=== PATIENT | female | born 2005 | race Caucasian/White ===

== ENCOUNTER 2023-01-15 17:24 | Emergency (ER) | payer BC, SELFPAY ==
--- NOTE | ~2023-01-15 | XR_ITS ---
EXAMINATION: XR chest 2V DATE: 01/15/2023 19:30 INDICATION: Cough TECHNIQUE: PA and lateral views of the chest are obtained. COMPARISON: None available FINDINGS: The lungs are free of acute opacities. No pleural effusion or pneumothorax. The cardiomedia stinal silhouette is normal. The visualized bones and soft tissues are unremarkable. IMPRESSION: 1. No acute cardiopulmonary abnormality. Reviewed, dictated and finalized at location [facility]. [facility]
[2023-01-15 18:25] VITALS: BP 141/86; PULSE 126; RESP 16; TEMP 38.1; O2SAT 99
[2023-01-15 18:47] LABS: Basophils Absolute Auto 0.1 K/mm3 (0.0-0.1); Eosinophils Absolute Auto 0.1 K/mm3 (0-0.3); Hematocrit 42.6 % (37.0-47.0); Hemoglobin 14.4 g/dL (12.0-15.0); Immature Granulocyte Absolute 0.03 K/mm3 (0.00-0.031); Immature Granulocyte Percent A 0.3 % (0-0.5); Lymphocytes Absolute Auto 2.57 K/mm3 (0.9-3.2); Lymphocytes Percent Auto 28.7 % (18.3-44.2); Mean Corpuscular HGB Conc 33.8 g/dl (32-36); Mean Corpuscular Hemoglobin 27.9 pg (26-34); Mean Corpuscular Volume 82.6 fl (80-100); Mean Platelet Volume 9.6 fl (7.4-10.4); Monocytes Absolute Auto 0.9 K/mm3 (0.1-0.6); Monocytes Percent Auto 9.5 % (2.6-8.5); Neutrophils Absolute Auto 5.3 K/mm3 (1.3-6.7); Neutrophils Percent Auto 59.5 % (45.5-73.1); Platelet Count Result 215 k/mm3 (150-375); Red Blood Count 5.16 M/mm3 (4.2-5.4); Red Cell Distribution Width 12.3 % (11.5-14.5); White Blood Count 8.9 K/mm3 (4.5-10.0)
[2023-01-15 19:05] LABS: Appearance Urine Clear (Clear); Bacteria Urine None Seen /hpf; Bilirubin Urine Negative (Negative); Blood Urine Negative (Negative); Color Urine Yellow (Yellow); Glucose Urine UA Negative (Negative); Ketones Urine 1+ mg/dL (Negative); Leukocyte Esterase Ur Negative LEU/UL (Negative); Nitrate Urine Negative (Negative); Non Pathogenic Casts 0-2; Protein Urine Trace mg/dL (Negative); RBC Urine 0-2 /hpf (0-2); Specific Grav Ur 1.027 (1.001-1.035); Squamous Epithelial Cell Urine Occasional /hpf (Few); WBC Urine 0-5 /hpf
[2023-01-15 19:09] LABS: Strep Group A RT-PCR DETECTED (Negative)
[2023-01-15 19:23] LABS: Influenza A QL RT-PCR Negative (Negative); Influenza B QL RT-PCR Negative (Negative); SARS-CoV-2 RNA PCR Negative
[2023-01-15 19:28] LABS: Add Urine Microscopic? YES
--- NOTE | 2023-01-15 19:46 | ED.GENADULT ---
HPI - General Adult General Chief complaint: Fever Stated complaint: fever, dizzy Time Seen by Provider: 01/15/23 19:29 Source: RN notes reviewed History of Present Illness HPI narrative: Patient presents emergency department from home for upper respiratory symptoms. Patient states she began to feel ill 3 days ago. States that she has had a fever with a temperature up to 104 ?F. States has been associated with a cough that is been nonproductive as well as sore throat. States she had 1 episode of nausea and vomiting earlier today but states that she has had no abdominal pain and denies any nausea at this time. She states that when her fevers to get high she does feel mildly dizzy but denies any dizziness at this time she did take Tylenol prior to arrival she denies any chest pain shortness of breath abdominal pain or any other symptoms Related Data Allergies Allergy/AdvReac Type Severity Reaction Status Date / Time No Known Allergies Allergy Unverified 02/25/17 20:44 Review of Systems Review of Systems: General: Reports fevers and chills ENT: Reports sore throat rhinorrhea Respiratory: Denies shortness of breath reports cough CV: Denies chest pain or palpitations GI: Denies abdominal pain or diarrhea. Reports nausea vomiting x1 Musculoskeletal: Denies back pain or muscle pain Neuro: Denies numbness, tingling, weakness or focal weakness Skin: Denies rash Except as documented, all other systems reviewed and negative [facility] Past Medical History Medical History (Updated 01/15/23 @ 19:58 by Guillermo Meza DO) Patient denies significant medical history Social History Social History (Updated 01/15/23 @ 19:48 by Guillermo Meza DO) Smoking status: Never smoker Exam Narrative: APPEARANCE: No acute distress, nontoxic, resting in bed EYES: EOMI HEENT: Normocephalic, atraumatic, TMs clear bilaterally, bilateral turbinates boggy, oral mucosa moist erythema the posterior pharynx and bilateral tonsils no exudate seen uvula midline no trismus tolerating own secretions RESPIRATORY: No respiratory distress Clear to auscultation bilaterally with no rhonchi wheezing or rales. CARDIOVASCULAR: Regular rate and rhythm without murmurs rubs or gallops. ABDOMINAL: Soft, nontender, nondistended, no rebound or guarding MUSCULOSKELETAl: Moves all extremities. No clubbing, cyanosis or edema. NEURO: Awake and alert. Following commands, speech normal, no focal deficits SKIN:: Warm, dry. No rashes lesions or abrasions PSYCHIATRIC: Normal affect/mood, Course Course Emergency Course: Discussed with patient results of workup and diagnosis. Discussed need for follow-up with primary care, proper use of medication, and reasons to return to the emergency department. Patient understands and agrees to current treatment plan Vital Signs Vital signs: Vital Signs Temperature 100.6 F H 01/15/23 18:25 Pulse Rate 126 H 01/15/23 18:25 Respiratory Rate 16 01/15/23 18:25 Blood Pressure 141/86 H 01/15/23 18:25 Pulse Oximetry 99 01/15/23 18:25 Temperature 100.6 F H 01/15/23 18:25 Pulse Rate 126 H 01/15/23 18:25 Respiratory Rate 16 01/15/23 18:25 Blood Pressure 141/86 H 01/15/23 18:25 Pulse Oximetry 99 01/15/23 18:25 Medical Decision Making [facility] Narrative Medical decision making narrative: Patient presents for fever cough sore throat over the past 3 days has been taking Tylenol at home 1 episode of nausea vomiting has been able to keep down p.o. liquids and has no abdominal pain and no nausea at this time white count is within normal limits lab results do show the patient to have a group A strep positive she is negative for COVID influenza chest x-ray shows no acute process will start on Augmentin with discharge to follow-up as an outpatient Differential Diagnosis Differential Diagnosis: Influenza A COVID-19 and strep throat UTI pneumonia Vital Signs Vital Signs: Vital Signs Temperature 100.6 F H 01/15/23 18:25
[2023-01-15 20:17] LABS: Urine Pregnancy Test Negative
[2023-01-15 20:18] LABS: Pregnancy On Board Control Positive
[2023-01-15] MEDS: IBUPROFEN 600 MG TABLET PO (20:29)
[2023-01-15] MEDS: AMOXICILLIN/CLAVULANATE K 875-125 MG TAB 1 TABLET PO (20:29)
[2023-01-15 20:32] VITALS: BP 97/69; PULSE 108; RESP 18; O2SAT 98
== END 2023-01-15 20:33 | disposition home or self-care (01) ==
PROVIDERS: Emergency Medicine; Emergency Provider Emergency Medicine
DX: J02.0 Streptococcal pharyngitis (principal); Z20.822 Contact with and (suspected) exposure to COVID-19
CPT/HCPCS: 36415; 71046; 81001; 81025; 85025; 87636; 87651; 99283; A9270

== ENCOUNTER 2024-10-18 08:25 | Emergency (ER) | payer BC, SELFPAY ==
--- NOTE | ~2024-10-18 | CT_ITS ---
Non-contrast Head CT History: Headache Technique: Axial non-contrast imaging of the brain was performed. Dose reduction technique was used on this scan by utilizing automated exposure control and iterative reconstruction technique. The dose -length product (DLP) was 681.00 mGy-cm. Findings: There is no evidence of intracranial hemorrhage, mass lesion, or acute infarct. Probable e juliana calcifications in the bilateral basal ganglia, right slightly more prominent than left. No other parenchymal abnormality seen.. The ventricles and subarachnoid spaces are normal in size. The calv arium appears normal. The visualized paranasal sinuses and mastoid air cells are clear. Impression: No acute abnormality. Probable early calcifications in the bilateral basal ganglia. Reviewed, dictated and finalized at location . [facility] [employer] Impression: No acute abnormality. Probable early calcifications in the bilateral basal gang edison.
[2024-10-18 08:42] VITALS: BP 115/96; PULSE 75; RESP 18; TEMP 36.6; O2SAT 100
[2024-10-18] MEDS: METOCLOPRAMIDE HCL INJ 10 MG/2 ML VIAL IV PUSH (10:13)
[2024-10-18] MEDS: SODIUM CHLORIDE 0.9% IV 1,000 ML 999 ML IV CONT (10:13)
[2024-10-18] MEDS: diphenhydrAMINE HCl INJ 50 MG/ML VIAL 25 MG IV PUSH (10:13)
[2024-10-18] MEDS: dexAMETHasone SOD PHOS INJ 10 MG/ML 1 ML VIAL IV PUSH (10:14)
[2024-10-18] MEDS: KETOROLAC 30 MG/ML VIAL (*BKC) IV PUSH (10:14)
[2024-10-18 10:59] VITALS: BP 109/76; PULSE 68; RESP 18; O2SAT 99
--- NOTE | 2024-10-18 11:06 | ED.HA ---
HPI - Headache General Chief Complaint: Headache Stated Complaint: migraine Time Seen by Provider: 10/18/24 09:05 History of Present Illness HPI Narrative: Patient is a 19-year-old female presents to the ER complaints of a migraine this started abruptly this morning 1-2 hours prior to arrival. She reports she has had approximately 3-4 migraines in the past. Patient denies any recent injury but does endorse nausea and vomiting associated with headache. She reports she is currently on menstrual cycle. Patient denies any recent one-sided numbness/ tingling/ weakness, fevers, signs/ symptoms infection. She endorses sensitivities to light and is tearful during exam. Related Data Allergies Allergy/AdvReac Type Severity Reaction Status Date / Time No Known Allergies Allergy Unverified 02/25/17 20:44 Review of Systems Review of Systems: All systems reviewed & are unremarkable except as noted in HPI and below PMFSH Past Medical History Medical History Patient denies significant medical history Social History Social History Smoking status: Never smoker Exam Narrative: GENERAL: Well appearing, well-nourished, non-toxic, in no acute distress. HEAD: Normocephalic, atraumatic. NECK: Supple. No adenopathy, no masses. RESPIRATORY: Airway patent, respirations nonlabored. Clear to auscultation bilaterally, no rales, rhonchi, wheezing. CARDIOVASCULAR: Regular rate and rhythm without murmurs, rubs, or gallops. Peripheral pulses 2+ and equal bilaterally. ABDOMINAL: Soft, nontender, nondistended, no hepatosplenomegaly. Normoactive BS. MUSCULOSKELETAL: Moves all extremities. Strength/ROM intact without gross deformities. SKIN: Warm, dry, normal color. No rashes. NEURO: A&O X3. Speech clear. Cranial nerves II-XII grossly intact. Steady gait. No ataxic movements. PSYCHIATRIC: Appropriate mood and affect. Normal interaction. Course Vital Signs Vital signs: Vital Signs Temperature 36.6 C 10/18/24 08:42 Pulse Rate 75 10/18/24 08:42 Respiratory Rate 18 10/18/24 08:42 Blood Pressure 115/96 H 10/18/24 08:42 Pulse Oximetry 100 10/18/24 08:42 Oxygen Delivery Room Air 10/18/24 08:42 Temperature 36.6 C 10/18/24 08:42 Pulse Rate 68 10/18/24 10:59 Respiratory Rate 18 10/18/24 10:59 Blood Pressure 109/76 10/18/24 10:59 Pulse Oximetry 99 10/18/24 10:59 Oxygen Delivery Room Air 10/18/24 08:42 MDM - Headache MDM Narrative Medical decision making narrative: Patient is a 19-year-old female presents to the ER complaints of a migraine this started abruptly this morning 1-2 hours prior to arrival. She reports she has had approximately 3-4 migraines in the past. Patient denies any recent injury but does endorse nausea and vomiting associated with headache. She reports she is currently on menstrual cycle. Patient denies any recent one-sided numbness/ tingling/ weakness, fevers, signs/ symptoms infection. Labs Ordered:None needed Imaging Ordered: CT brain, per pt's request Results: Pt's CT brain scan indicated there is no evidence of intracranial hemorrhage, mass lesion, or acute infarct. Probable early calcifications in the bilateral basal ganglia, right slightly more prominent than left. No other parenchymal abnormality seen.. The ventricles and subarachnoid spaces are normal in size. The calvarium appears normal. The visualized paranasal sinuses and mastoid air cells are clear. Diagnosis: Migraine headache, intractable Patient Education/Shared MDM: After discussing the pros/cons of imaging of pt's brain, she and her mother would like to have a head CT scan to rule out any acute causes. Disposition/Plan: Results shared with patient and her mother. Explained that CT scan finding was not an acute problem but she should follow-up outpatient with her primary care provider. Patient and her mother verbalized understanding and are in agreement with plan to discharge home. She reports her pain has improved after receiving the headache cocktail. Patient will be receiving no new prescriptions for medications. Differential Diagnosis Differential diagnosis: Likely migraine, tension headache, subarachnoid hemorrhage, headache and sinusitis Imaging Data Attestation: I personally reviewed and interpreted this imaging study as follows: Radiologist's impression: Impressions Head CT 10/18/24 10:01 Impression: No acute abnormality. Probable early calcifications in the bilateral basal ganglia. Discharge Plan Discharge Clinical Impression: Migraine, Calcification of basal ganglia Patient Disposition: Home, Self-Care Condition: Stable Instructions: Antibiotic Form, Migraine Headache (ED) Additional Instructions: Patient is in agreement with current treatment plan. All questions answered. Vital signs stable at time of discharge. No new medications prescribed. Pt should follow-up with her PCP. Return to the ER with any worsening symptoms. Prescriptions: No Action ibuprofen 600 mg tablet 600 mg PO TID PRN (Reason: pain) Qty: 14 0RF amoxicillin-pot clavulanate 875-125 mg tablet 1 tablet PO Q12H Qty: 20 0RF Follow-up/Referrals: UNKNOWN,DOCTOR [Primary Care Provider] - Time of Disposition: 11:44
== END 2024-10-18 11:54 | disposition home or self-care (01) ==
PROVIDERS: Emergency Provider Registered Nurse
DX: G43.909 Migraine, unspecified, not intractable, without status migrainosus (principal); G23.8 Other specified degenerative diseases of basal ganglia
CPT/HCPCS: 70450; 96361; 96374; 96375; 99284; J1100; J1200; J1885; J2765; J7030

== ENCOUNTER 2025-06-03 15:59 | Outpatient (CLI) | payer BC, SELFPAY ==
--- OUTSIDE RECORDS SUMMARY | 2025-06-03 16:02 | XMS_ITS | Clinical Summary ---
Author Organization [facility] Address [address] [place] [address] Phone Care Team Providers Care Digital Media Sales Consultant Name Role Phone Marcelle Gibson LANGUAGE THERAPIST, WELL TENDER Primary Care Provider + Allergies No known active allergies Medications IBUPROFEN PO Take by mouth. Ac tive acetaminophen (TYLENOL) 500 MG Tablet Take 500 mg by mouth every 4 hours as needed. Active albuterol 108 (90 Base) MCG/ACT Aerosol SolutionIndicati ons:Wheezing,Low er respiratory infection (e.g., bronchitis, pneumonia, pneumonitis, pulmonitis) take 2 Puffs by inhalation every 4 hours as needed for Wheezing. 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 Gender Identity Not on file Sexual Orientation Not on file Last Filed Vital Signs Vital Sign Reading Time Taken Comments Blood Pressure 128/72 01/17/2023 8:40 AM HOSPITAL FOOD SERVICE WORKER Pulse 104 01/17/2023 8:40 AM HOSPITAL FOOD SERVICE WORKER Temperature 36.3 C (97.4 F) 01/17/2023 8:40 AM HOSPITAL FOOD SERVICE WORKER Respiratory Rate 14 01/17/2023 8:40 AM HOSPITAL FOOD SERVICE WORKER Oxygen Saturation 98% 01/17/2023 8:40 AM HOSPITAL FOOD SERVICE WORKER Inhaled Oxygen Concentration - - Weight 83.8 kg (184 lb 12.8 oz) 01/17/2023 8:40 AM HOSPITAL FOOD SERVICE WORKER Height 170.2 cm (5' 7) 01/17/2023 8:40 AM HOSPITAL FOOD SERVICE WORKER Body Mass Index 28.94 01/17/2023 8:40 AM HOSPITAL FOOD SERVICE WORKER Plan of Treatment Health Maintenance Due Date Last Done Comments Hepatitis C Virus (HCV) Screening 2003 TdaP Immunization 2003 Human Papillomavirus (HPV) Immunization (1 - 3-dose series) 2018 Meningococcal B Immunization (1 of 2 - Standard) 2019 Hepatitis B Immunization (1 of 3 - 19+ 3-dose series) 2022 Pap Smear 01/19/2024 Influenza Immunization (#1) 2024 SARS-COV-2 Immunization ( - season) 2024 Respiratory Syncytial Virus (RSV) Immunization (Adult) (1 - 1-dose 75+ series) 2078 Meningococcal Immunization (ACWY) Aged Out No longer eligible based on patient's age to complete this topic Pneumococcal Immunization Combined Aged Out No longer eligible based on patient's age to complete this topic Rotavirus Immunization Aged Out No lo nger eligible based on patient's age to complete this topic Insurance [facility] Care Teams Digital Media Sales Consultant Relationship Specialty Start Date End Date Marcelel Gibson, LANGUAGE THERAPIST, WELL TENDER [address] [place] [address] PCP - General Advanced Practice Nurse 01/17/23
[2025-06-03 19:17] LABS: Thyroid Stimulating Hormone 0.559 uIU/mL (0.465-4.680)
[2025-06-04 09:08] LABS: FSH 9.2 mIU/mL (.)
[2025-06-07 11:08] LABS: Free Testosterone (Direct) 1.8 pg/mL (0.0-4.2)
[2025-06-09 04:07] LABS: Estradiol, Sensitive 31.0 pg/mL (.)
== END 2025-06-03 16:00 | disposition home or self-care (01) ==
LOC: ANHLAB 16:00
PROVIDERS: Visit Provider Student in an Organized Health Care Education/Training Program
DX: N92.6 Irregular menstruation, unspecified (principal)
CPT/HCPCS: 36415; 82166; 82670; 83001; 84402; 84403; 84443

== ENCOUNTER 2025-08-30 15:06 | Emergency (ER) | payer BC, SELFPAY ==
--- NOTE | 2025-08-30 15:09 | ED_ITS ---
HPI - Skin/Abscess/Foreign Bdy General Chief complaint: Skin/Abscess/Foreign Body Stated complaint: RASH Time Seen by Provider: 08/30/25 15:07 Source: patient Mode of arrival: ambulatory Limitations: no limitations History of Present Illness HPI narrative: Jarad is a 20 year old female patient presenting to the clinic today with c/o rash, body aches, feeling feverish, headache, nausea/vomiting, and abdominal dis comfort x 1 week. She reports rates pain 2-3 for headache. Has taken Tylenol and Mucinex for her symptoms. Last menstrual period was August 23. Rash is not itchy or painful. Related Data Home Medications ?Medication ?Instructions ?Recorded ?Confirmed ?Last Taken ?Type No Home Medications 06/02/25 08/30/25 U nknowetelvina History Allergies Allergy/AdvReac Type Severity Reaction Status Date / Time No Known Allergies Allergy Verified 08/30/25 15:15 Review of Systems Review of Systems: Pertinent positives per HPI. Patient denies any visual changes, dizziness, cough, runny nose, sore throat, shortness of breath, chest pain, palpitations, diarrhea, constipation, or any urinary issues. [facility] Past Medical History Medical History Patient denies significant medical history Social History Social History Smoking status: Never smoker Tobacco type: e-cigarettes/vaping Alcohol intake: current Alcohol use details: occasional Substance use: never Substance use type: does not use Do You Feel Safe in your Home?: Yes Lack of Transportation: No Lack of Food: Never True Current Housing: I Have Housing Concerned About Future Housing: No Difficulty Paying Gas/Electric Bills: No Difficulty Paying for Meds: No Currently Unemployed: No Education: High School Diploma/GED Difficulty w/ Childcare or Family Care: No Living arrangements: other Additional living arrangements comments: finance Occupation/Education: occupation Gender identity (if verbalized by the patient): Female Sexual Orientation (if Verbalized by the Patient): Straight or Heterosexual Comments At the time of my signature, I reviewed and agree with the nursing past medical, surgical, social, and family history. There is no relevant family history pertinent to the patient complaint. Exam Narrative: General: Well-developed, well nourished, in no apparent distress Head: Normocephalic, atraumatic Eyes: Pupils equally round and reactive to light bilaterally, EOM intact, sclera and conjunctive clear, no discharge, lids normal Ears: TMs intact and clear, ear canals clear, no drainage, grossly hearing normal. Nose: Nares patent, no discharge, no inflammation, no sinus tenderness. Mouth: Oropharynx red without lesions or masses, good dentition, MMM. Neck: Supple, trachea midline, no enlargement of anterior or posterior cervical nodes, no thyroid masses or goiter palpable. Cardio: Regular rate and rhythm, s1 and s2 normal, no murmur appreciated. Resp: Clear to auscultation bilaterally anteriorly and posteriorly, no rhonchi, rales, wheezing or rubs Abdomen: Soft, pliable, bowel sounds present in all quadrants, non-tender to palpation, no organomegly, no CVAT tenderness. Integumentary: [place], warm, and dry, red raised nontender, blanchable, sandpaper like rash on arms, neck, trunk, and legs Course Course Emergency Course: Portions of this record may have been created with voice recognition software. Level of Care: Express Care Visit Vital Signs Vital signs: Vital Signs Temperature 36.6 C 08/30/25 15:16 Pulse Rate 92 08/30/25 15:16 Respiratory Rate 16 08/30/25 15:16 Blood Pressure 125/88 08/30/25 15:16 Pulse Oximetry 100 08/30/25 15:16 Temperature 36.6 C 08/30/25 15:16 Pulse Rate 92 08/30/25 15:16 Respiratory Rate 16 08/30/25 15:16 Blood Pressure 125/88 08/30/25 15:16 Pulse Oximetry 100 08/30/25 15:16 Vital signs reviewed MDM - Skin/Abscess/Foreign Bdy MDM Narrative Medical decision making narrative: At the time of visit patient is resting comfortably on the exam table. Patient appears to be nontoxic. C/o rash, body aches, feeling feverish, headache, nausea/vomiting, and abdominal discomfort x 1 week. She rates pain 2-3 for h eadache. Has taken Tylenol and Mucinex for her symptoms. Last menstrual period was August 23. Rash is not itchy or painful. Vital signs are stable. On exam patient has mildly red oropharynx without cervical lymphadenopathy, red, raised, sandpaper-like rash to neck, back, chest, arms, and legs-non itchy or painful, blanchable, lung sounds are clear, heart rates regular rate and rhythm, abdomen soft, pliable, nondistended, bowel sounds present all 4 quadrants, nontender to palpation, no CVAT tenderness or organomegaly. Labs: Strep test was performed and was negative in the clinic today. We will send strep for culture. Plan: I suspect patient likely has viral syndrome/viral exanthem. Denies needing a work note. Will send strep for culture. Supportive measures were discussed with the patient and they voiced understanding discharge instructions and agrees to treatment plan. Return precautions reviewed Differential Diagnosis Differential diagnosis: Likely abscess of skin or subcutaneous tissue, viral exanthem, dermatophytosis, urticaria, herpes zoster, allergic reaction to drug, cellulitis, eczema, insect bites, impetigo and contact dermatitis Lab Data Labs: Lab Results 08/30/25 Range/Units 15:27 POC Grp A Strep Screen Negative (Negative) Discharge Plan Discharge Clinical Impression: Viral exanthem, Acute viral syndrome Patient Disposition: Home Condition: Stable Instructions: Antibiotic Form, Viral Syndrome (ED), Viral Exanthem (ED) Additional Instructions: Strep test was negative in the clinic today. We will send strep for culture if this comes back positive we will contact you in place you on antibiotics at that time. Increase fluids and stay well hydrated May take Tylenol or motrin as directed on bottle for pain/fever May use Flonase 1 spray in each nare daily May take OTC antihistamines such as Zyrtec or Claritin daily as directed on bottle May apply Vicks vapor rub to chest to open sinuses Sinus rinses for congestion Cepacol spray, cough drops, throat lozenges, warm tea with honey/lemon, gargle salt water to soothe throat BRAT diet for diarrhea Clear liquids x 24 hours then advance as tolerated for nausea/vomiting Go to the ED if you develop a worsening in your condition- high fever not controlled by Tylenol or Motrin, dehydration, weakness, lethargy, shortness of breath, or chest pain. Follow up with your PCP in 3-5 days if symptoms persist. Patient Language: Faroese Prescriptions: No Action No Home Medications Follow-up/Referrals: PHYSICIAN,FULL TIME BABYSITTER [Primary Care Provider, Internal Medicine] Time of Disposition: 15:31 Quality NIHSS Nursing Documentation ED NIHSS nursing documentation: reviewed/agree
[2025-08-30 15:16] VITALS: BP 125/88; PULSE 92; RESP 16; TEMP 36.6; O2SAT 100
[2025-08-30 15:29] LABS: EDSTREPNEGPOS1 Negative (Negative)
== END 2025-08-30 15:30 | disposition home or self-care (01) ==
PROVIDERS: Emergency Provider Nurse Practitioner Family
DX: B09 Unspecified viral infection characterized by skin and mucous membrane lesions (principal); B34.9 Viral infection, unspecified
CPT/HCPCS: 87081; 87880; 99213; G0463